=== PATIENT | male | born 1965 | race Two or more races ===

== ENCOUNTER 2023-02-16 14:52 | Emergency (ER) | payer OTHER ==
[~2023-02-16] VITALS: Ht 167.6 cm; Wt 77.1 kg
[2023-02-16] MEDS ORDERED: METAXALONE800 MG PO (17:06)
[2023-02-16] MEDS ORDERED: CELEBREX200MG PO (17:06)
[2023-02-16] MEDS ORDERED: MEDROLPACK PO (17:06)
== END 2023-02-16 17:11 | disposition home or self-care (01) ==
LOC: ER 14:52
DX: S39.012A Strain of muscle, fascia and tendon of lower back, initial encounter (principal); S29.012A Strain of muscle and tendon of back wall of thorax, initial encounter; X58.XXXA Exposure to other specified factors, initial encounter; Y93.89 Activity, other specified; Y92.89 Other specified places as the place of occurrence of the external cause; Y99.9 Unspecified external cause status